=== PATIENT | male | born 1980 | race Caucasian/White ===

== ENCOUNTER 2022-03-29 14:25 | Outpatient (CLI) | payer OTHER, SELFPAY ==
--- NOTE | ~2022-03-29 | MR_ITS ---
EXAMINATION: MRA brain wo con DATE: 03/29/2022 15:25 INDICATION: Headache. TECHNIQUE: Magnetic resonance angiography (MRA) of the brain was performed without intravenous contra st with T1-weighted SPGR by the 3D [id number]-[id number] technique. Maximum intensity projection 3D-reconstr uctions were obtained. COMPARISON: None. FINDINGS: The vertebral arteries are codominant. There is no significant stenosis of basilar artery or the post erior cerebral arteries. There is no significant stenosis of the intracranial internal carotid arteri es or anterior or middle cerebral arteries. Anterior communicating artery is normal. The posterior co mmunicating arteries are normal. There is no aneurysm. IMPRESSION: 1. Normal brain MRA. Reviewed, dictated and finalized at location A. IMPRESSION: 1. Normal brain MRA.
--- NOTE | ~2022-03-29 | MR_ITS ---
EXAMINATION: MR brain/brain stem wo/w con DATE: 03/29/2022 15:28 INDICATION: Headache. TECHNIQUE: Magnetic resonance imaging (MRI) of the brain and brainstem was performed without and with 15 mL MultiHance intravenous contrast. COMPARISON: Head CT 06/12/2009 FINDINGS: There is no intracranial hemorrhage, acute infarction, or abnormal intracranial mass lesion . The ventricles are normal in size. The paranasal sinuses are clear. The orbits are normal. There is a small right mastoid effusion. IMPRESSION: 1. Normal brain. Reviewed, dictated and finalized at location A. IMPRESSION: 1. Normal brain.
== END 2022-03-29 14:26 | disposition home or self-care (01) ==
PROVIDERS: PCP Internal Medicine; Visit Provider Student in an Organized Health Care Education/Training Program
DX: R51.9 Headache, unspecified (principal); Z82.49 Family history of ischemic heart disease and other diseases of the circulatory system
CPT/HCPCS: 70544; 70553; A9577

== ENCOUNTER 2022-05-12 14:43 | Outpatient (CLI) | payer OTHER, SELFPAY ==
--- NOTE | ~2022-05-12 | MR_ITS ---
MR Venogram of the Brain Clinical Indication: Abnormal CT Technique MR venogram was done using coronal 2D time of flight technique. Findings: The superior sagittal sinus appears normal. The left and right transverse sinuses appears normal. The sigmoid sinuses appear normal bilaterally. The internal cerebral veins, vein of Franco and straight sinus are patent. Impression: No evidence of venous sinus thrombosis. Reviewed, dictated and finalized at location [] [employer] Impression: No evidence of venous sinus thrombosis.
== END 2022-05-12 14:44 | disposition home or self-care (01) ==
PROVIDERS: PCP Internal Medicine; Visit Provider Student in an Organized Health Care Education/Training Program
DX: R51.9 Headache, unspecified (principal); R93.0 Abnormal findings on diagnostic imaging of skull and head, not elsewhere classified
CPT/HCPCS: 70544

== ENCOUNTER 2023-03-28 13:57 | Emergency (ER) | payer OTHER, SELFPAY ==
--- NOTE | ~2023-03-28 | CT_ITS ---
EXAMINATION: CT abdomen pelvis w con DATE: 03/28/2023 15:55 INDICATION: Epigastric abdominal pain. Nausea and vomiting. TECHNIQUE: Computed tomography (CT) of the abdomen and pelvis was performed with 100 CC Omnipaque 350 intravenous contrast. Automated exposure control and iterative reconstruction technique were employe d. Exam dose: 239.67 mGy-cm total exam DLP. COMPARISON: None. FINDINGS: The lung bases are clear. Normal heart size. No pericardial or pleural effusion. The liver, gallbladder, bile ducts, spleen, pancreas, pancreatic duct, and adrenal glands and kidneys appear normal. No CT evidence of appendicitis is noted. No bowel obstruction, bowel wall thickening, pneumatosis or intraperitoneal free air is detected. Normal caliber of the abdominal aorta. No intraperitoneal or retroperitoneal or pelvic mass lesion or adenopathy or ascites is detected. The urinary bladder and prostate gland are unremarkable. Included skeletal structures appear normal. IMPRESSION: No significant abnormality Reviewed, dictated and finalized at Location A. Reviewed, dictated and finalized at location B. IMPRESSION: No significant abnormality
[2023-03-28 14:05] VITALS: BP 112/62; PULSE 52; RESP 18; TEMP 37; O2SAT 98
[2023-03-28] MEDS: KETOROLAC 30 MG/ML VIAL (*BKC) IV PUSH ×2 (14:18→15:40)
[2023-03-28] MEDS: ONDANSETRON INJ 4 MG/2 ML VIAL IV PUSH (14:18)
--- NOTE | 2023-03-28 14:18 | ED.GENADULT ---
HPI - General Adult General Chief complaint: Headache Stated complaint: migraine/numbness and tingling in lips/fingers Time Seen by Provider: 03/28/23 14:48 History of Present Illness HPI narrative: Ruslan Zuniga is a 42 y/o male with PMhx of Migraines and follows with Dr. Hickey. He presents today with complaints of having a migraine started at around [id number] he took his rizatriptan , took a nap and when he woke up he started to have nausea/vomiting. He denies any vision changes/ he reports that his headache is actually improving but feeling tingling in both of his hands/ feet. Related Data Allergies Allergy/AdvReac Type Severity Reaction Status Date / Time No Known Allergies Allergy Verified 03/28/23 14:08 [facility] Past Medical History Medical History Migraine Social History Social History (Updated 03/28/23 @ 15:23 by Henrry Graham MD) Smoking status: Never smoker Tobacco type: cigarettes Alcohol intake: never Substance use type: marijuana Lack of Transportation: No Lack of Food: Never True Current Housing: I Have Housing Concerned About Future Housing: No Difficulty Paying Gas/Electric Bills: No Difficulty Paying for Meds: No Currently Unemployed: No Education: High School Diploma/GED Difficulty w/ Childcare or Family Care: No Living arrangements: with family Occupation/Education: occupation Gender identity (if verbalized by the patient): Male Course Vital Signs Vital signs: Vital Signs Temperature 37.0 C 03/28/23 14:05 Pulse Rate 52 L 03/28/23 14:05 Respiratory Rate 18 03/28/23 14:05 Blood Pressure 112/62 03/28/23 14:05 Pulse Oximetry 98 03/28/23 14:05 Temperature 36.6 C 03/28/23 18:53 Pulse Rate 60 03/28/23 18:53 Respiratory Rate 18 03/28/23 18:53 Blood Pressure 108/70 03/28/23 18:53 Pulse Oximetry 99 03/28/23 18:53 Medical Decision Making Vital Signs Vital Signs: Vital Signs Temperature 37.0 C 03/28/23 14:05 Pulse Rate 52 L 03/28/23 14:05 Respiratory Rate 18 03/28/23 14:05 Blood Pressure 112/62 03/28/23 14:05 Pulse Oximetry 98 03/28/23 14:05 Temperature 36.6 C 03/28/23 18:53 Pulse Rate 60 03/28/23 18:53 Respiratory Rate 18 03/28/23 18:53 Blood Pressure 108/70 03/28/23 18:53 Pulse Oximetry 99 03/28/23 18:53 Lab Data 03/28/23 14:21 03/28/23 14:21 Labs: Lab Results 03/28/23 03/28/23 Range/Units 14:21 15:34 WBC 6.3 (4.5-10.0) K/mm3 RBC 5.18 (4.6-6.20) M/mm3 Hgb 15.3 (14.0-18.0) g/dL Hct 44.0 (42.0-52.0) % MCV 84.9 (80-100) fl MCH 29.5 (26-34) pg MCHC 34.8 (32-36) g/dl RDW 12.7 (11.5-14.5) % Plt Count 168 (150-375) k/mm3 MPV 10.2 (7.4-10.4) fl Immature Gran % (Auto) 0.3 (0-0.5) % Neut % (Auto) 71.5 (45.5-73.1) % Lymph % (Auto) 20.3 (18.3-44.2) % [place] % (Auto) 7.1 (2.6-8.5) % Eos % (Auto) 0.5 (0-4.4) % Baso % (Auto) 0.3 (0.2-1.2) % Lymph # (Auto) 1.28 (0.9-3.2) K/mm3 [place] # (Auto) 0.5 (0.1-0.6) K/mm3 Eos # (Auto) 0.0 (0-0.3) K/mm3 Baso # (Auto) 0.0 (0.0-0.1) K/mm3 Abs Immat Gran (auto) 0.02 (0.00-0.031) K/mm3 Absolute Neuts (auto) 4.5 (1.3-6.7) K/mm3 Absolute Nucleated RBC 0.0 (0.0-0.012) K/mm3 Nucleated RBC % 0.0 (0.0-0.2) % Sodium 134 L (137-145) mmol/L Potassium 3.8 (3.4-5.0) mmol/L Chloride 99 (98-107) mmol/L Carbon Dioxide 25 (22-30) mmol/L Anion Gap 10 (8-16) mmol/L BUN 14 (9-20) mg/dL Creatinine 0.90 (0.7-1.3) mg/dL Estim Creat Clear Calc 99 ml/min Estimated GFR > 60 (59 - ) Glucose 112 H (65-110) mg/dL Calcium 9.6 (8.4-10.2) mg/dL Total Bilirubin 1.0 (0.2-1.3) mg/dL AST 22 (17-59) U/L ALT 21 (6-50) U/L Alkaline Phosphatase 80 (38-126) U/L Total Protein 8.0 (6.3-8.2) g/dL Albumin 4.8 (3.5-5.1) g/dL Lipase
[2023-03-28 14:40] LABS: Basophils Percent Auto 0.3 % (0.2-1.2); Eosinophils Percent Auto 0.5 % (0-4.4); Hemoglobin 15.3 g/dL (14.0-18.0); Immature Granulocyte Absolute 0.02 K/mm3 (0.00-0.031); Immature Granulocyte Percent A 0.3 % (0-0.5); Lymphocytes Absolute Auto 1.28 K/mm3 (0.9-3.2); Lymphocytes Percent Auto 20.3 % (18.3-44.2); Mean Corpuscular HGB Conc 34.8 g/dl (32-36); Mean Corpuscular Hemoglobin 29.5 pg (26-34); Mean Corpuscular Volume 84.9 fl (80-100); Mean Platelet Volume 10.2 fl (7.4-10.4); Monocytes Absolute Auto 0.5 K/mm3 (0.1-0.6); Monocytes Percent Auto 7.1 % (2.6-8.5); Neutrophils Absolute Auto 4.5 K/mm3 (1.3-6.7); Neutrophils Percent Auto 71.5 % (45.5-73.1); Platelet Count Result 168 k/mm3 (150-375); Red Blood Count 5.18 M/mm3 (4.6-6.20); Red Cell Distribution Width 12.7 % (11.5-14.5); White Blood Count 6.3 K/mm3 (4.5-10.0)
[2023-03-28 15:00] LABS: Alanine Aminotransferase 21 U/L (6-50); Albumin Level 4.8 g/dL (3.5-5.1); Alkaline Phosphatase 80 U/L (38-126); Anion Gap 10 mmol/L (8-16); Aspartate Amino Transferase 22 U/L (17-59); Blood Urea Nitrogen 14 mg/dL (9-20); Calcium 9.6 mg/dL (8.4-10.2); Carbon Dioxide 25 mmol/L (22-30); Chloride 99 mmol/L (98-107); Estimated CRCL calculation 99 ml/min; Estimated Glomerular Filt Rate > 60; Glucose 112 mg/dL (65-110); Potassium 3.8 mmol/L (3.4-5.0); Sodium 134 mmol/L (137-145)
--- NOTE | 2023-03-28 15:21 | ED.HA ---
HPI - Headache General Chief Complaint: Headache Stated Complaint: migraine/numbness and tingling in lips/fingers Time Seen by Provider: 03/28/23 14:48 History of Present Illness HPI Narrative: This is a 42-year-old male, with history of migraines, who presents emergency department complaining of multiple episodes of vomiting, migraine and headache. The patient developed migraine 3 days ago, the headache has since improved, however the patient has since developed sharp epigastric abdominal pain, multiple episodes of nonbloody vomiting and cramping in the bilateral hands. He denies recent travel, trauma or fevers. Related Data Allergies Allergy/AdvReac Type Severity Reaction Status Date / Time No Known Allergies Allergy Verified 03/28/23 14:08 Review of Systems Review of Systems: CONSTITUTIONAL: Denies fever, chills, or sweats. CARDIOVASCULAR: Denies chest pain, palpitations, or edema. RESPIRATORY: Denies cough or dyspnea. GASTROINTESTINAL: Sharp epigastric abdominal pain, nausea and nonbloody vomiting denies diarrhea. GENITOURINARY: Denies dysuria or hematuria. SKIN: Denies rash or itching. MUSCULOSKELETAL: Denies back pain, joint pain, or myalgia. NEUROLOGIC: Headache, bilateral hand paresthesias and cramping denies, dizziness, or weakness. PSYCHIATRIC: Denies anxiety or depression. PMFSH Past Medical History Medical History Migraine Social History Social History (Updated 03/28/23 @ 15:23 by Henrry Graham MD) Smoking status: Never smoker Tobacco type: cigarettes Alcohol intake: never Substance use type: marijuana Lack of Transportation: No Lack of Food: Never True Current Housing: I Have Housing Concerned About Future Housing: No Difficulty Paying Gas/Electric Bills: No Difficulty Paying for Meds: No Currently Unemployed: No Education: High School Diploma/GED Difficulty w/ Childcare or Family Care: No Living arrangements: with family Occupation/Education: occupation Gender identity (if verbalized by the patient): Male Exam Narrative: GENERAL: Well-developed, well-nourished, and in no acute distress. Appears uncomfortable HEAD: Normocephalic, atraumatic. EYES: PERRLA and EOMI. ENT: Nares clear, no rhinorrhea or epistaxis. Mucous membranes moist. Oropharynx without tonsillar hypertrophy exudate or other lesions. CHEST: Clear to auscultation. No respiratory distress. No wheezes rales or rhonchi HEART: Regular rate and rhythm. No murmur heard. Normal peripheral pulses. ABDOMEN: Soft, tender to palpation in the epigastrium, without rebound or guarding, nondistended, normal active bowel sounds. No CVA tenderness to palpation EXTREMITIES: Normal range of motion. No edema. SKIN: Warm, dry, no rash. NEURO: Alert and oriented x3. Moving all 4 limbs purposefully. Cramping of the bilateral hands noted PSYCH: Normal mood and affect. Course Course Emergency Course: 16:35 - Chemistries unremarkable. CBC within normal limits. CT abdomen pelvis not concerning for acute intra-abdominal process. Lipase within normal limits. On reevaluation, after pain medications and IV fluids, the patient feels significantly improved. Repeat blood pressure however decreased to the 80s systolic. On reevaluation, the patient is standing in and denies lightheadedness. 16:48 - Repeat manual blood pressure 105/78. 18:05 - On reevaluation, the patient states he feels significantly improved. Will discharge. Discussed return and emergency precautions including signs/symptoms of intracranial hemorrhage and acute abdomen. The patient voiced understanding and is comfortable with the plan. All questions answered to his satisfaction Vital Signs Vital signs: Vital Signs Temperature 98.6 F 03/28/23 14:05 Pulse Rate 52 L 03/28/23 14:05 Respiratory Rate 18 03/28/23 14:05 Blood Pressure 112/62 03/28/23 14:05 Pulse Oximetry 98 10
[2023-03-28] MEDS: SODIUM CHLORIDE 0.9% IV 2,000 ML 999 ML IV CONT (15:37)
[2023-03-28] MEDS: diphenhydrAMINE HCl INJ 50 MG/ML VIAL 25 MG IV PUSH (15:39)
[2023-03-28] MEDS: METOCLOPRAMIDE HCL INJ 10 MG/2 ML VIAL IV PUSH (15:41)
[2023-03-28 15:49] LABS: Lipase 132 U/L (23-300)
[2023-03-28 16:35] VITALS: BP 88/54; PULSE 55; RESP 16; O2SAT 100
[2023-03-28 16:45] VITALS: BP 108/75
--- NOTE | 2023-03-28 16:45 | PC.NURSE ---
when getting routine vitals on trolly monitor it showed a low bp. MD notified. got a mannual bp that was 108/75 with fluids going. no further orders at this time.
[2023-03-28 16:48] VITALS: BP 105/78
--- NOTE | 2023-03-28 17:03 | PC.NURSE ---
report and care given to CESARIO Mckeon. all questions answered
[2023-03-28 18:53] VITALS: BP 108/70; PULSE 60; RESP 18; TEMP 36.6; O2SAT 99
== END 2023-03-28 19:01 | disposition home or self-care (01) ==
PROVIDERS: Nurse Practitioner Family; Emergency Provider Preventive Medicine Aerospace Medicine; PCP Internal Medicine
DX: R10.13 Epigastric pain (principal); R11.2 Nausea with vomiting, unspecified; R51.9 Headache, unspecified
CPT/HCPCS: 36415; 74177; 80053; 83690; 85025; 96361; 96374; 96375; 99284; J1200; J1885; J2405; J2765; J7030; Q9967